=== PATIENT | female | born 2000 | race Caucasian/White ===

== ENCOUNTER 2020-12-25 17:48 | Emergency (ER) | payer BC ==
[~2020-12-25] VITALS: Ht 165.1 cm; Wt 87.3 kg
[2020-12-25 18:00] VITALS: TEMP 100.1
[2020-12-25] MEDS ORDERED: LIDOCAINE HCL100 M1 MM (19:07)
[2020-12-25 19:40] VITALS: BP 112/67; PULSE 102
== END 2020-12-25 19:40 | disposition home or self-care (01) ==
LOC: COL.ER 17:48
DX: B08.5 Enteroviral vesicular pharyngitis (principal); B34.1 Enterovirus infection, unspecified; B34.9 Viral infection, unspecified

== ENCOUNTER 2021-10-06 17:11 | Emergency (ER) | payer BC ==
[~2021-10-06] VITALS: Ht 165.1 cm; Wt 86.4 kg
[~2021-10-06 17:11] MED LIST: LIDOCAINE HCL100 M1 MM
[2021-10-06 17:23] VITALS: TEMP 98.3
[2021-10-06 18:35] LABS: ALBUMIN 3.8 gm/dL (3.5-5.0); BILIRUBIN,TOTAL 1.5 mg/dL (0.2-1.2); CALCIUM 9.9 mg/dL (8.4-10.2); CREATININE, serum 0.76 mg/dL (0.57-1.11); TOTAL PROTEIN 7.9 gm/dL (6.2-8.1)
[2021-10-06] MEDS ORDERED: ZOFRAN ODT4 MG PO (18:43)
[2021-10-06 19:05] VITALS: BP 106/78; PULSE 78
== END 2021-10-06 19:11 | disposition home or self-care (01) ==
LOC: COL.ER 17:11
PROVIDERS: Emergency Medicine
DX: B27.90 Infectious mononucleosis, unspecified without complication (principal); R74.01 Elevation of levels of liver transaminase levels; E80.7 Disorder of bilirubin metabolism, unspecified
CPT/HCPCS: J1885; J7030